=== PATIENT | male | born 1935 | race Caucasian/White ===

== ENCOUNTER 2016-11-13 08:37 | Inpatient (IN) | payer MEDICARE ==
[~2016-11-13] VITALS: Ht 170.2 cm; Wt 79.9 kg
[2016-11-13] VITALS (14 sets, daily range): BP systolic 110–141; BP diastolic 64–101; PULSE 56–74; RESP 12–20; O2SAT 95–98
[~2016-11-13 08:37] MED LIST: Heparin 25,000 Unit/500 mL 0.45% NS Premix IV ONE; Heparin 5,000 Unit/mL Inj ONE; MeTOProlol 1 mg/mL 5 mL Inj ONE; Nitroglycerin 2% 1 Gm Ointment TOPICAL ONE; Nitroglycerin 50,000 mcg/250 mL D5W Premix IV ONE; Ondansetron 2 mg/mL 2 mL Inj ONE
--- NOTE | 2016-11-13 08:38 | ED.REPORT ---
HPI-Chest Pain 40 and Over Date of Service Nov 13, 2016 ED Provider: Christopher Olivares MD The pt is an 81 y/o male presenting to the ED via EMS due to chest pain onset 0600 this morning. He also experienced a cold sweat when the CP began. The pt is not experiencing any pain currently but describes feeling uncomfortable. Per EMS, the pt took 325 MG of aspirin initially at 0600 and 50 MG of Atenolol he had from an old prescription later. EMS gave him two nitro sprays which helped decrease the pain for roughly 15 minutes. The pt also describes not taking his BP medication for the last 6 months reports having his BP taken recently at [facility] and being told it was low. Nursing Notes Stated Complaint: CHEST PAIN Chief Complaint: Chest pain Nursing Notes Reviewed: Yes Allergies: Coded Allergies: No Known Allergies (Unverified , 11/13/16) No Active Prescriptions or Reported Meds General Time Seen by MD: 08:37 Chief Complaint Chest pain Hx Obtained From: Patient, EMS Arrived By: Ambulance Sudden in Onset?: Yes Onset Occurred: 1 - 4 hours ago Symptom Duration: Since onset Recent Healthcare: No recent hospitalization, Recent doctor visit Similar Sx Previous: No Past Medical History Past Medical History None reported Past Surgical History None reported Smoking History Unknown if Ever Smoker Social History None reported Ambulatory Status Independent Review of Systems Pt denies any pain currently but reports feeling "uncomfortable"; Cardiovascular: Reports: Chest pain Skin: Reports Diaphoresis ("Cold sweat" ) Complete sys rev & neg: except as marked. Physical Exam Initial Vital Signs Vital Signs (First) Date Time Temp Pulse Resp B/P Pulse Ox O2 Delivery O2 Flow Rate FiO2 11/13/16 09:02 36.5 67 19 135/71 98 Room Air Initial VS: Reviewed Head / Eyes: Atraumatic, Normocephalic, PERRL ENT: Mucous membranes moist, Conjunctiva normal, No scleral icterus Neck: Supple, Non-tender, Full range of motion Extremities: Vascular intact, Neuro intact, No swelling, No tenderness Skin: Warm, Dry, No cyanosis Neurologic: Alert, Oriented, Nonfocal Psychiatric: Mood/affect normal, Behavior normal, Normal thought content General/Constitutional: Awake, Alert Respiratory / Chest: Atraumatic, Breath sounds NL, Breath sounds = bilat Cardiovascular: Heart rate NL, Regular rhythm, Heart sounds NL Abdomen: Atraumatic, Soft, Non-tender Interpretation & Diagnostics Lab Results Interpretation Result Diagram: 11/13/16 0845 Test 11/13/16 08:45 White Blood Count 11.7th/mm3 (3.8-10.1) Red Blood Count 4.61mil/mm3 (4.40-5.80) Hemoglobin 14.8g/dL (13.8-17.2) Hematocrit 42.8% (41.0-50.0) Mean Corpuscular Volume 92.8fL (81-100) Mean Corpuscular Hemoglobin 32.1pg (27.0-35.0) Mean Corpuscular Hemoglobin Concent 34.6% (32.0-37.0) Red Cell Distribution Width 12.7% (12.3-15.4) Platelet Count 157bil/L (150-400) Neutrophils (%) (Auto) 70.2% (40-74) Lymphocytes (%) (Auto) 20.5% (14-46) Monocytes (%) (Auto) 7.4% (4-12) Eosinophils (%) (Auto) 1.5% (0-5) Basophils (%) (Auto) 0.2% (0-3) ECG Interpretation ECG Interpretation: Rate 93 NSR Paired ventricular premature complexes Anterior infarct, acute (LAD) Lateral leads are also involved Time: 08:41 Interpreted by: ED physician X-Ray Chest Interpretation Chest Xray Interpretation: IMPRESSION: No acute cardiopulmonary disease. Dictated by: Prudencio Askew M.D. on 11/13/2016 at 9:03 Approved by: Prudencio Askew M.D. on 11/13/2016 at 9:04 View: Portable, 1 view Interpretation / Wet Read by: Interpret - Radiologist Re-Eval/Medical Decision Source of Hx: EMS Time of Eval: 09:05 Re-Evaluation/Progress Note: Dr. Valdovinos, order caller, came to the ED to see the pt. Consultation : Referral / Consult Name: Cas Valdovinos MD Consulted With: Cardiology Call Returned at: 08:30 Chipper Operator: Will see patient Counseled Regarding: Diagnosis, Lab results, Need for admission Discharge & Departure Primary Impression: STEMI (ST elevation myocardial infarction) Involved coronary artery: unspecified coronary artery Qualified Code: I21.3 - ST elevation (STEMI) myocardial infarction of unspecified site Disposition: ADMITTED TO HOSPITAL Discharge Condition All VS Reviewed: Yes Condition: Stable Referrals: Briseida King MD Crit Care Except Billable Proc Time Spent: 30-74 minutes Services Performed: Patient management by me, Time spent at bedside, Reviewing test results, Reviewing imaging, Discussing patient care, Documentation in record Scribe Attestation Portions of this note were transcribed by Herbert Main. I, Dr. Olivares personally performed the history, physical exam and medical decision-making; I reviewed and confirmed the accuracy of the information in the transcribed note. copies to: Briseida King MD, Kirk H MD Nov 13, 2016 08:38 Herbert Main Nov 13, 2016 09:05
[2016-11-13] MEDS ORDERED: MeTOProlol 1 mg/mL 5 mL Inj IVPUSH PRN (08:45)
[2016-11-13] MEDS ORDERED: Heparin 5,000 Unit/mL Inj IVPUSH ONE ×2 (08:45→12:05)
[2016-11-13] MEDS ORDERED: Nitroglycerin 2% 1 Gm Ointment TOPICAL ONE (08:45)
[2016-11-13] MEDS ORDERED: Heparin 10,000 Unit/1,000 mL NS Premix IV ONE ×2 (08:53→09:48)
[2016-11-13] MEDS ORDERED: Heparin 1,000 Units/500 mL NS Premix IV ONE (08:53)
[2016-11-13] MEDS ORDERED: Nitroglycerin 50,000 mcg/250 mL D5W Premix IV ONE (08:53)
[2016-11-13] MEDS ORDERED: Heparin 1,000 Unit/mL 10 mL Inj ONE (08:53)
--- NOTE | 2016-11-13 09:06 | DRSVH ---
PROCEDURE: X-RAY CHEST ONE VIEW, PORTABLE ([id number]) INDICATIONS: 81 year-old male with chest pain. TECHNIQUE: One view of the chest was acquired. COMPARISON: [facility], CR, XR CHEST 1V PORTABLE, 03/19/2016, 3:33 PM. FINDINGS: Surgical changes and devices: None. Lungs and pleura: No pleural effusions or pneumothorax. Lungs are clear. Mediastinum: Mediastinal contours appear normal. Heart size is normal. Bones and chest wall: No suspicious bony lesions. Overlying soft tissues appear unremarkable. IMPRESSION: No acute cardiopulmonary disease. Dictated by: Prudencio Askew M.D. on 11/13/2016 at 9:03 Approved by: Prudencio Askew M.D. on 11/13/2016 at 9:04
[2016-11-13] MEDS ORDERED: Heparin 5,000 Unit/mL Inj IVPUSH PRN (09:25)
[2016-11-13] MEDS ORDERED: Heparin 25K Unit/500mL 0.45 NS 25,000 UNIT in IV Premix 1 EACH IV SCH (09:25)
[2016-11-13 09:29] LABS: BASOPHILS % (AUTO) 0.2 % (0-3); EOSINOPHILS % (AUTO) 1.5 % (0-5); MONOCYTES % (AUTO) 7.4 % (4-12); Mean Corpuscular Hemoglobin 32.1 pg (27.0-35.0); Mean Corpuscular Volume 92.8 fL (81-100); NEUTROPHILS % (AUTO) 70.2 % (40-74); Platelet Count 157 bil/L (150-400)
[2016-11-13] MEDS ORDERED: fentaNYL-PF 50 mCg/mL 2 mL Inj ONE (09:29)
[2016-11-13 09:45] LABS: TROPONIN T 0.01 ug/L (0.0-0.011)
[2016-11-13 09:56] LABS: Magnesium 1.9 mg/dL (1.6-2.6)
[2016-11-13] MEDS ORDERED: 0.9% Sodium Chloride 250 ML IV PRN (11:52)
[2016-11-13] MEDS ORDERED: 0.9% Sodium Chloride 1,000 ML IV PRN (11:52)
[2016-11-13] MEDS ORDERED: Atropine 1 mg/10 mL (Code) Syringe IVPUSH PRN (11:55)
[2016-11-13] MEDS ORDERED: Ondansetron 2 mg/mL 2 mL Inj IVPUSH PRN (11:55)
[2016-11-13] MEDS ORDERED: Heparin 25K Unit/500mL 0.45 NS 25,000 UNIT in IV Premix 1 EACH IV ONE ×2 (12:05→12:15)
--- NOTE | 2016-11-13 13:53 | CS94 ---
[address] [address] DIAGNOSTIC CARDIAC CATHETERIZATION PATIENT: SANTOS BAUMAN : 1935 MR#: [id number] ADMIT: 11/13/2016 JOB ID: [id number] SERVICE DATE: 11/13/2016 KIER TENDER: Cas Valdovinos MD PROCEDURES: 1. Coronary angiogram, emergent. 2. Left heart catheterization (LHC), pressure measurements, and left ventriculogram (LVG). 3. Percutaneous coronary intervention (PCI) of proximal left anterior descending (LAD): Xience Alpine drug-eluting stent (MELIA) 2.75 x 23 mm. CLINICAL DETAILS: This 81-year-old man presents to the cardiac catheterization laboratory for emergent coronary angiogram and anticipated primary PCI for acute anterior STEMI. He presented to the emergency department by EMS this morning, two and a half hours after the sudden onset of his first ever episode of severe retrosternal chest discomfort with neck discomfort and diaphoresis. Initial ECG was unremarkable, then serial ECGs showed some straightening of anterior ST-segment, and on arrival in the emergency department there was overt severe anterior ST elevation with subtle confirmatory reciprocal. Inferior ST depression. He has ongoing mild to moderate chest discomfort but otherwise clinically stable. CAD risk factors include only a history of hypertension in the past, not currently active her treated. I evaluated him in the emergency department and discussed with him the recommendation to proceed emergently to coronary angiogram for definitive diagnosis and to guide treatment decisions, including medical therapy, anticipated PCI, or coronary bypass surgery if needed. We discussed the procedure including possible risks and complications. We discussed bleeding, infection, and blood clot; as well as injury to nerve, artery, vein or kidney; and also arrhythmia, drug reaction, or others. We discussed treatment as needed including surgery, pacemaker, transfusion. We discussed more serious complications that are possible including stroke, heart attack, cardiac arrest, , and emergency surgery including transfer for coronary bypass. We discussed stents, including the need for mandatory capital letters DAPT and the possible need for additional interventional procedures. After discussion and questions, he signed informed consent to proceed. He was brought to the catheterization laboratory NPO where he was prepped sterilely and draped. CORONARY ANGIOGRAM: Arterial access was obtained without difficulty in the right common femoral artery using fluoroscopic localization over the femoral head, with lidocaine local anesthesia and modified Seldinger technique, to insert a 10 cm 6-Turkish side-arm sheath. Catheters were advanced and exchanged over a long 0.035 inch J tipped guidewire. Coronary angiography was performed first, using a 6-Turkish JR-4 diagnostic catheter for the RCA. A 6-Turkish JL-4 guide catheter was used for the LCA. LHC: At the end of the procedure, a 6-Turkish pigtail catheter was introduced across the aortic valve into the left ventricle. Pressures were measured including LVED and pullback. LVG was performed in the 30 degree DEL CID projection using 36 mL of contrast injected at 12 mL/second. Primary PCI of proximal LAD: The diagnostic images were reviewed. Decision was made to proceed with emergent primary PCI of the subtotally occluded, diffusely diseased culprit proximal LAD lesion (HERMELINDA 1 flow). Prior to the procedure the patient had received ASA 324 mg chewed and Plavix 600 mg p.o. loading dose and heparin. Procedural anticoagulation was obtained with bolus IV heparin to achieve therapeutic ACT. Aliquots of NTG IC were used during the procedure. The LCA was engaged with a 6-Turkish Voda 3.5 guide catheter. Predilatation: A BMW wire, 0.014 inches x 190 cm, was advanced without difficulty across the treatment site to the apical LAD. A Trek balloon, 2.5 x 15 mm, was placed across the lesion and inflated to maximum 10 atmospheres. Flow in the artery was improved. Estimated door to balloon time was 83 minutes. Stent: Next the target lesion was treated with a Xience Alpine MELIA (drug-eluting stent) 2.75 x 23 mm deployed across the culprit lesion at 10 atmospheres. The large diagonal immediately proximal to the stent did not deteriorate. Post dilatation: The stent was post dilated with a noncompliant Trek NC balloon, 2.75 x12 mm, deployed to 16 atmospheres within the stent. Completion angiograms show an excellent angiographic result with no residual lesion, HERMELINDA-3 flow restored, and no evident angiographic complication. Note I also assessed the extensive diffuse disease in the LAD including in the ostial LAD and in the mid LAD distal to the stented segment. I elected not to pursue further treatment of the moderate to severe diffuse disease. Procedure without difficulty. Patient tolerated procedure well. No complication. A side-arm sheath angiogram shows adequate access in the RFA for a closure device. Arterial hemostasis was obtained without difficulty using a six-Turkish Angio-Seal. The patient was clinically stable, improved, and chest pain free. He was transferred from the catheterization laboratory to the CCU for ongoing care including by the primary hospitalist team. I discussed the procedure, findings, and recommendations with the patient and his , as well as with Cardiology (Dr. Norton), with the ED staff (Dr. Sultana), and with the hospitalist team (Dr. Alonzo). FINDINGS: LMCA: Intact. The left main coronary artery is a short large vessel without angiographic obstruction. LAD: LAD is the infarct related artery with a culprit proximal diffuse subtotal proximal LAD lesion (HERMELINDA 1 flow). The LAD is a moderate size transapical vessel with moderate to severe diffuse disease. There is extensive diffuse calcification noted. In addition to the diffuse proximal 99% lesion, the ostial LAD is moderately diseased (60%-70%), and there is diffuse disease in the mid LAD distal to the culprit lesion (60%-70%). There is a very large high diagonal just prior to the culprit lesion. This diagonal has diffuse disease including an eccentric 70% proximal lesion (HERMELINDA-3 flow). LCX: Note atherosclerotic plaquing with intermediate narrowing about 50% proximally. The LCX is a large codominant vessel with moderate diffuse intermediate proximal disease and a large distal . RCA: Codominant. Note 80% tubular proximal lesion. The RCA is a moderate to large size vessel with diffuse atherosclerotic plaquing and a significant tortuous proximal lesion at a fine's crook tortuosity. The distal PDA is moderate sized. LHC: LVED 35 mmHg (pre a 25 mmHg) and no systolic gradient on pullback across the aortic valve. LVG: Left ventriculogram shows normal LV size with a large anterior apical and distal region of akinesis corresponding to the wrap-around LAD. The basal segments are compensatory and vigorous. Overall ejection fraction moderately to severely decreased with estimated ejection fraction 35%-40%. No significant MR. CONCLUSIONS: 1. PCI: Xience MELIA of proximal LAD 2.75 x 23 mm. 2. ACS (acute coronary syndrome): Acute anterior myocardial infarction (STEMI) with a culprit proximal LAD subtotal lesion (HERMELINDA 1 flow). 3. Elevated LVED. 4. Coronary artery disease (CAD): Two-vessel CAD including proximal culprit subtotal LAD lesion and severe proximal RCA lesion. 5. Elevated LVED. 6. LV dysfunction: Ejection fraction 35%-40% with anteroapical wall motion defect. RECOMMENDATIONS: 1. ECASA--indefinitely. 2. Plavix: Plan one year of dual antiplatelet therapy with Plavix if well tolerated including ongoing Cardiology followup. I discussed with the patient and his the critical importance of mandatory Plavix and not to stop for any reason without immediate Cardiology consultation. 3. Echocardiogram. 4. OMT-optimal guideline directed medical therapy for underlying capital letters CAD risk factors and for his NE including ASA, Plavix, add beta-keyla in 24 hours, and high-intensity statin.
--- NOTE | 2016-11-13 13:59 | CONS ---
[address] [address] CONSULTATION REPORT PATIENT: SANTOS BAUMAN : 1935 MR#: [id number] ADMIT: 11/13/2016 JOB ID: [id number] DATE OF SERVICE: 11/13/2016 CARDIOLOGY CONSULTATION NOTE--INITIAL CRITICAL CARE EVALUATION (EMERGENCY DEPARTMENT):: DATE OF EVALUATION: Sunday, November 13, 2016. CONSULTING PHYSICIAN: Cardiology--Cas Valdovinos MD. PROBLEM: 1. Acute coronary syndrome (ACS): a. Chest pain--severe ischemic chest pain with ischemic time 2.5 hours prior to presentation. b. STEMI--acute anterior myocardial infarction; with initial ECG unremarkable; then severe anterior ST elevation developing. CAD RISK FACTORS: Lifetime nonsmoker. Hypertension--hypertension treated in the past; but not currently. No history of treated hyperlipidemia. No history of diabetes. No history of premature coronary disease in the family. CHIEF COMPLAINT:: Called for STEMI activation. HISTORY OF PRESENT ILLNESS:: PRESENTATION: I came emergently to see this 81-year-old man who presented by EMS transport to the emergency department from home. He has no prior history of heart disease. He has had no premonitory symptoms until yesterday. He is functional class I, vigorously active without effort limitation or effort-related symptoms. In fact, he hauled a cord of wood onto his porch yesterday. He walks 2 miles daily, including up hills with his without difficulty. This morning he noted the sudden and unexpected onset of severe "cold sweats," with heavy diaphoresis and also chest pressure across the upper chest which was severe. At first, he thought it might be musculoskeletal related to his work yesterday. Then, he had his call EMS. He did not have associated symptoms of dyspnea or lightheadedness or nausea. The chest discomfort did radiate to his neck. On presentation he has ongoing chest pain that is mild to moderate (about 4/10 intensity); and he is otherwise clinically stable. In the emergency department, he received ASA 324 mg chewed in addition to reporting had taken aspirin at home. He received heparin bolus and IV infusion was started. CARDIAC HISTORY:: Symptomatically he has had no prior ischemic symptoms or effort-related chest discomfort. Regarding heart failure, he reports no chronic dyspnea; or nocturnal dyspnea or edema. Regarding arrhythmia, he reports no history of arrhythmia or current symptoms of arrhythmia, including tachy palpitation, presyncope or syncope. Regarding other possible underlying vascular disease, he reports no history of CVA; and no current symptoms of TIA. No claudication. Regarding possible dual antiplatelet therapy, he reports no current bleeding symptoms; no anticipated surgery; and he indicates he is reliable to take mandatory medicines, if needed. ALLERGIES:: No known drug allergies. I elicit no history of allergy to medical contrast; or to seafood, fish, iodine or shellfish. MEDICATIONS:: He takes no medications regularly. Today, when he had chest pain, he took some aspirin; and two atenolol from when he was previously treated for hypertension. PAST MEDICAL HISTORY: He has a personal physician. He reports no other significant medical diagnoses; and he is generally healthy. REVIEW OF SYSTEMS: I questioned him in the emergent setting about a 13-point review of systems which is unremarkable, noncontributory, or negative except as noted including: No constitutional symptoms. No history of thyroid disorder. No history of lung disorder including asthma or wheezing. No history of GI disorder including indigestion, ulcer, hepatitis, or jaundice. No history of disorder or prostate symptoms. PERSONAL AND SOCIAL HISTORY: Cigarettes--lifetime nonsmoker. Alcohol--He reports no alcohol use. Family--He lives with his and has two grown children who are not local. His is later present. Work--He is long retired as an "architectural project captain/construction driller." FAMILY HISTORY: Not further contributory. PHYSICAL EXAMINATION:: VITAL SIGNS: Blood pressure 135/71, with heart rate 70, regular, in sinus rhythm on telemetry. Respiratory rate 18 and unlabored with SpO2 98% on room air. Afebrile. Weight about 80 kg. GENERAL APPEARANCE: Pleasant, well-developed, elderly man in mild distress with chest pain. NEUROLOGIC AND MENTAL STATUS: No overt focal neurologic defect noted. He is alert, oriented, appropriate and conversant. HEENT: PERRL. Conjunctivae pink. Sclerae not icteric. Mouth and mucous membranes intact. NECK: Carotid upstroke intact bilaterally without bruit. Jugular venous pressure unremarkable. No palpable thyromegaly. No palpable cervical lymphadenopathy. LUNGS: Clear to auscultation bilaterally. HEART: No chest wall tenderness. CARDIAC EXAMINATION: Notable for distant heart sounds. Regular rhythm. S4 gallop and there is no loud murmur heard. ABDOMEN: Somewhat obese; but otherwise unremarkable without tenderness, mass, hepatosplenomegaly, or bruit of abdominal aortic aneurysm. EXTREMITIES: Intact without edema; and the bilateral pedal pulses are palpable. DIAGNOSTIC STUDIES:: ELECTROCARDIOGRAM: I reviewed the three pre-hospital ECGs and the admitting ECG. Initially, the ECG is unremarkable; then a subsequent ECG shows suggestive but nondiagnostic ST straightening anteriorly; and then the admitting ECG in the ED shows overt severe anterior ST elevation of multiple millimeters with mild confirmatory reciprocal inferior ST depression. PVCs noted. Q-waves in V1 and V2 only. CHEST X-RAY: Chest x-ray film shows borderline cardiomegaly and borderline pulmonary venous hypertension without definite heart failure. LABORATORY: No laboratory available at the time of the procedure. CBC includes WBC 11,700, with hemoglobin 14.8, hematocrit 42.8, normal indices and platelet count 157,000. Chemistries include potassium 4.2, BUN 23, creatinine 0.94 with glucose 118. Magnesium 1.9 and normal LFT. Initial troponin not elevated, less than 0.010. ASSESSMENT:: I discussed the findings, impressions, and management considerations with the patient; later with his ; with the ED physician (Dr. Sultana); and with the hospitalist team (Dr. Alonzo) includin. ACS with STEMI: This is his first ever presentation of heart disease. He had the sudden onset of severe chest pain, with severe continuing chest pain consistent with ischemia. ECG was not initially abnormal; then developed overt anterior myocardial infarction. He is otherwise clinically stable on presentation. I discussed the recommendation to proceed emergently to coronary angiogram for definitive diagnosis and to guide treatment decisions, including anticipated PCI, medical therapy or even coronary bypass surgery if needed. We discussed the procedure including possible risks and complications. After discussion and questions, he signed informed consent to proceed. RECOMMENDATIONS: 1. Coronary angiogram and anticipated PCI--now; emergent. 2. Admit to CCU to hospitalist service. 3. Echocardiogram. 4. OMT--optimal guideline directed medical therapy for underlying CAD risk factors; and for anticipated CAD.
--- NOTE | 2016-11-13 14:17 | NUR ---
Admit to CCU: Patient arrived to CCU room 2009 @ 1120. A&O X3. at bedside. PIV X2 SL VSS. SpO2: mid to high 90's on RA. Tele: SB-SR 50-60. Denies. CP, SOB, discomfort. R groin site is C/D/I, soft and non-tender to touch, no bruising noted. R pedal pulse was auscultated with Doppler and marked with pen. L pedal pulse is weak to palpation. Two hours of bedrest completed. Heparin gtt was initiated at 1000u/hr per cardiac protocol as ordered. Patient status changed to PCC. Report given to Idalmis Porter RN.
--- NOTE | 2016-11-13 14:56 | PCM.HPMED ---
Subjective Date of Service Nov 13, 2016 Primary Provider: Admitting Physician: Davian Alonzo MD Primary Care Physician: Nopcp Attending Physician: Davian Alonzo MD Admit Status: From the Emergency Department, Admit to [facility] Team Chief Complaint: 81-year-old man with benign medical history presents with acute chest pain and ST elevation myocardial infarction History of Present Illness: Patient is in his usual state of health recently. On the day prior to admission he unloaded a cord of firewood on his porch without symptoms. The morning of admission approximate 6 AM he experienced cold diaphoresis. This is associated with "discomfort" in his anterior chest neck and jaw. Is unable to describe this symptom further. He felt lightheaded. He took aspirin and atenolol without relief. Headaches. Mild symptom relief with nitroglycerin during transport to the emergency room. He underwent PCI with stenting to his LAD by Dr. Valdovinos. He has been asymptomatic following this procedure. Review of systems: he has no headache, dyspnea, nausea vomiting or peripheral musculoskeletal complaints at this time. He has no prior history of angina. He took atenolol in the past for hypertension which seems to have resolved spontaneously. Is a nonsmoker. No diabetes. No family history of premature CAD. No known dyslipidemia. Review of Systems: 11 systems reviewed and findings noted above. Allergies Coded Allergies: No Known Allergies (Unverified , 11/13/16) Home Medications None PMH # Right ankle fracture # Hypertension - resolved spontaneously meds discontinued by PCP. Surgical History None Family History 2 children alive and well. No premature coronary disease or known familial lipid disorder. Social History Occupation: retired architectural manager, constructio Hx Alcohol Use: No Hx Substance Use: No Smoking Status: Unknown if Ever Smoker Living Arrangement: with Family (lives in his own home with , full ADLs) Additional Information Born in [place], [place] at age 26, lives in [facility]. Exam Vital Signs Vital Sign - Last Date Time Temp Pulse Resp B/P Pulse Ox O2 Delivery O2 Flow Rate FiO2 11/13/16 14:12 62 14 134/79 11/13/16 11:25 36.5 95 Room Air Exam General: Healthy-appearing elderly male no acute distress HEENT: sclerae anicteric, oral mucosa moist Neck: no JVD, no bruit, supple Chest: clear to auscultation Cardiac: S1S2, no murmur, no gallop Abdomen: BS normal, non-tender, no bruit no hepatosplenomegaly Extremities: No pitting edema; pulses intact in both dorsalis pedis; right femoral arterial PCI site is intact without bruising Neuro: A&O, cranial nerves symmetric, motor strength 5/5, coordination normal Lab and Diagnostics Result Diagram: 11/13/16 0845 11/13/16 0845 X-Rays, CTs and MRIs PROCEDURE: X-RAY CHEST ONE VIEW, PORTABLE ([id number]) IMPRESSION: No acute cardiopulmonary disease. Dictated by: Prudencio Askew M.D. on 11/13/2016 at 9:03 . Additional Diagnostics: DIAGNOSTIC CARDIAC CATHETERIZATION PROCEDURES: 1. Coronary angiogram, emergent. 2. Left heart catheterization (LHC), pressure measurements, and left ventriculogram (LVG). 3. Percutaneous coronary intervention (PCI) of proximal left anterior descending (LAD): Xience Alpine drug-eluting stent (MELIA) 2.75 x 23 mm. CONCLUSIONS: 1. PCI: Xience MELIA of proximal LAD 2.75 x 23 mm. 2. ACS (acute coronary syndrome): Acute anterior myocardial infarction (STEMI) with a culprit proximal LAD subtotal lesion (HERMELINDA 1 flow). 3. Elevated LVED. 4. Coronary artery disease (CAD): Two-vessel CAD including proximal culprit subtotal LAD lesion and severe proximal RCA lesion. 5. Elevated LVED. 6. LV dysfunction: Ejection fraction 35%-40% with anteroapical wall motion defect. RECOMMENDATIONS: 1. ECASA--indefinitely. 2. Plavix: Plan one year of dual antiplatelet therapy with Plavix if well tolerated including ongoing Cardiology followup. I discussed with the patient and his the critical importance of mandatory Plavix and not to stop for any reason without immediate Cardiology consultation. 3. Echocardiogram. 4. OMT-optimal guideline directed medical therapy for underlying CAD risk factors and for his ME including ASA, Plavix, add beta-keyla in 24 hours, and high-intensity statin. Cas Valdovinos MD 11/13/16 1547 . Assessment & Plan 81-year-old male with no prior coronary artery disease presents with acute anterior ST elevation myocardial infarction. # ST NIDIA, present on admission, acute. He is now status post PCI with stenting of the LAD. He has residual noncritical disease. - IV heparin - Dual antiplatelet therapy - Hyperintensity statin - Contact interventional cardiology for recurrent chest pain, Nitroglycerin as needed # Acute systolic congestive heart failure, present on admission. Erma-infarct ischemic cardiomyopathy. No symptoms at present - Initiate beta keyla after 24 hours - CHIQUITA inhibitor prior to discharge as tolerated by blood pressure # Possible dyslipidemia - Lipid panel in the a.m. . Pain Evaluation: Adequate Pain Control GI Prophylaxis: Not indicated Resuscitation Status: CPR: Attempt Resuscitation Time spent 60 minutes Davian Alonzo MD Nov 13, 2016 14:56
--- NOTE | 2016-11-13 15:39 | NUR ---
Admit to PCC Assumed pt care at approximately 1500. Right groin site: No pain on palp, no hematoma, no bleeding. Pt resting in bed HOB 30 degrees. Pt states he wants to wait to ambulate. Oriented to call light. Care continues.
--- NOTE | 2016-11-13 15:50 | DRSVH ---
[facility] [address] [place] [address] Echocardiogram Report Name: SANTOS BAUMAN Study Date: 11/13/2016 Height: 67 in Hospital Exam Location: [facility] Weight: 175 lb Gender: Other BSA: 1.9 m2 : 1935 Age: 81 yrs BP: 127/87 mmHg Reason For Study: CP, POST STEMI Ordering Physician: Performed By: Ronald Navarro Interpretation Summary 1) Normal left ventricular thickness and size with mildly reduced systolic function (EF 45-50%).2 2) There is akinesis of the mid to distal septum, apical inferior wall and the entire apex. 3) Normal right ventricular size and function. 4) There is mild to moderate mitral regurgitation. 5) No prior Echo available for comparison. Findings consistent with ischemic heart disease in the LAD territory. Procedure: A two-dimensional transthoracic echocardiogram with color flow and Doppler was performed. The study quality was technically adequate. There is no prior echocardiogram noted for this patient. The patient was in normal sinus rhythm during the exam. Left Ventricle: The left ventricle is normal in size. There is normal left ventricular wall thickness. Proximal septal thickening is noted. The ejection fraction is estimated to be 45-50%. There is akinesis of the mid to distal septum, apical inferior wall and the entire apex. Right Ventricle: The right ventricle is normal in size, thickness and function. Atria: The left atrial size is normal. Right atrium is small. The interatrial septum is intact with no evidence for an atrial septal defect. Mitral Valve: The mitral valve leaflets appear borderline thickened, but open well. The mitral valve leaflets are slightly calcified. The mitral valve chordae are thickened and/or calcified. There is mild to moderate mitral regurgitation. Aortic Valve: The aortic valve is normal in structure and function. There is no aortic valve stenosis. No aortic regurgitation is present. Tricuspid Valve: The tricuspid valve is normal. There is trace tricuspid regurgitation. Pulmonic Valve: The pulmonic valve leaflets are thin and pliable; valve motion is normal. There is mild pulmonic regurgitation. Great Vessels: The aortic root is normal size. The ascending aorta is at the upper limits of normal in size. The pulmonary artery is normal size. The inferior vena cava was not visualized. Pericardium/ Pleura There is no pericardial effusion. There is no pleural effusion. MMode/2D Measurements & Calculations LVIDd: 5.3 cm RA long axis: 4.7 cm LVOT diam: 2.3 cm LVIDs: 4.2 cm LA A2 area: 15.6 cm AoV Opening FS: 20.8 % LA A4 area: 20.6 cm RA area: 9.6 cm EPSS: 1.1 cm LA length (vol) RA vol: 16.6 ml Ao root diam IVSd: 1.0 cm RA : 8.7 ml/m2 LVPWd: 0.97 cmLA vol: 54.4 ml asc Aorta Diam LA vol index Ao Arch Diam (Prox : 28.5 ml/m2 Trans): 3.3 cm EDV(MOD-sp2) LV christina. diameter/BSA LV sys. diameter/BSA (cm/m^2): 2.8 (cm/m^2): 2.2 ESV(MOD-sp2) EF(MOD-sp2) Doppler Measurements & Calculations Ao V2 max MV E max chava MV E/A: 0.77 TR max chava : 106.6 cm/sec : 67.6 cm/sec Med Peak E' Chava : 267.5 cm/sec Ao max PG MV A max chava TR max P.6 mmHg : 4.5 mmHg : 88.0 cm/sec E/E' med: 12.1 Ao mean PG Lat Peak E' Chava LVOT Max Chava E/E' lat: 12.1 : 75.4 cm/sec E/e' average GRACE(I,D): 2.8 cm sev ratio MV dec time Ao V2 mean LV V1 max PG GRACE indexed to BSA : 0.17 sec : 75.3 cm/sec (cm^2/m^2): 1.5 Ao V2 VTI LV V1 VTI: 15.3 cm GRACE(V,D): 2.9 cm2 Reading Physician:03:49 PM
--- NOTE | 2016-11-13 16:45 | NUR ---
CKMB/Troponin Pt critical labs, CKMB: 177.6, Troponin: 13.68. Pt denies chest pain or SOB. MD notified. Care continues.
[2016-11-13 16:54] LABS: TROPONIN T 13.68 ug/L (0.0-0.011)
[2016-11-14] VITALS (9 sets, daily range): BP systolic 98–128; BP diastolic 62–75; PULSE 60–85; RESP 15–20; O2SAT 94–99
--- NOTE | 2016-11-14 03:03 | NUR ---
Activity P: Pt states, " I can't stand that bed. It's too loud. I: Pt sleeping on couch bed. E: Appears comfortable. No complaints.
[2016-11-14 03:32] LABS: Mean Corpuscular Hemoglobin 32.2 pg (27.0-35.0); Mean Corpuscular Volume 89.9 fL (81-100)
[2016-11-14 04:01] LABS: TROPONIN T 6.63 ug/L (0.0-0.011)
--- NOTE | 2016-11-14 11:19 | PCM.PNMED ---
Subjective Date of Service Nov 14, 2016 Subjective Patient 81-year-old male with a significant health history of present with anterior VT status post stenting in recovery. No significant health issues overnight. Today, patient without new complaints. Denies any shortness of breath, chest pain, palpitation, lightheadedness, dizziness, increasing leg swellings. Exam Vital Signs Vital Sign - Last Date Time Temp Pulse Resp B/P Pulse Ox O2 Delivery O2 Flow Rate FiO2 11/14/16 08:20 36.6 69 15 114/71 99 Room Air Intake and Output 11/13/16 11/13/16 11/14/16 Cumulative From/Thru 15:00 23:00 07:00 11/13/16 08:56 - 11/14/16 00:14 Intake Total 400 ml 400 ml Output Total 200 ml 200 ml 400 ml Balance 200 ml -200 ml 0 ml Intake Oral 400 ml 400 ml Output Urine Total 200 ml 200 ml 400 ml Exam General: No acute distress, appropriately interactive, patient was lying flat sleeping prior to interview HEENT: Normocephalic, atraumatic. PERRLA, EOMI, Anicteric sclerae, moist conjunctivae. Neck: No JVD, No bruits. No lymphadenopathy or thyromegaly. Cardiovascular: Regular rate and rhythm with no murmurs, rubs, or gallops appreciated Pulmonary: b/l air sound with no crackles, wheezes, or rhonchi. no use of accessory muscles. Abdomen: +Bowel sound, Soft, nontender, nondistended. Extremities: No clubbing or cyanosis, no lymphedema, no b/l lower leg edema Skin: Normal temperature, turgor, and texture; no rash. No visualized skin ulcer. Neurological: CN II-VII grossly intact, moving equally on all 4 extremities Psychiatric: Normal mood and affect. AOx3 IVs and Medications Medications Reviewed: Medications were reviewed in detail Lab and Diagnostics Result Diagram: 11/14/1691311/14/16913 X-Rays, CTs and MRIs PROCEDURE: X-RAY CHEST ONE VIEW, PORTABLE ([id number]) IMPRESSION: No acute cardiopulmonary disease. Dictated by: Prudencio Askew M.D. on 11/13/2016 at 9:03 . Cardiac Echo Impressions Reason For Study: CP, POST STEMI Interpretation Summary 1) Normal left ventricular thickness and size with mildly reduced systolic function (EF 45-50%).2 2) There is akinesis of the mid to distal septum, apical inferior wall and the entire apex. 3) Normal right ventricular size and function. 4) There is mild to moderate mitral regurgitation. 5) No prior Echo available for comparison. Findings consistent with ischemic heart disease in the LAD territory. Reading Physician:03:49 PM Additional Diagnostics DIAGNOSTIC CARDIAC CATHETERIZATION PROCEDURES: 1. Coronary angiogram, emergent. 2. Left heart catheterization (LHC), pressure measurements, and left ventriculogram (LVG). 3. Percutaneous coronary intervention (PCI) of proximal left anterior descending (LAD): Xience Alpine drug-eluting stent (MELIA) 2.75 x 23 mm. CONCLUSIONS: 1. PCI: Xience MELIA of proximal LAD 2.75 x 23 mm. 2. ACS (acute coronary syndrome): Acute anterior myocardial infarction (STEMI) with a culprit proximal LAD subtotal lesion (HERMELINDA 1 flow). 3. Elevated LVED. 4. Coronary artery disease (CAD): Two-vessel CAD including proximal culprit subtotal LAD lesion and severe proximal RCA lesion. 5. Elevated LVED. 6. LV dysfunction: Ejection fraction 35%-40% with anteroapical wall motion defect. RECOMMENDATIONS: 1. ECASA--indefinitely. 2. Plavix: Plan one year of dual antiplatelet therapy with Plavix if well tolerated including ongoing Cardiology followup. I discussed with the patient and his the critical importance of mandatory Plavix and not to stop for any reason without immediate Cardiology consultation. 3. Echocardiogram. 4. OMT-optimal guideline directed medical therapy for underlying CAD risk factors and for his VT including ASA, Plavix, add beta-keyla in 24 hours, and high-intensity statin. Cas Valdovinos MD 11/13/16 1237 . Assessment & Plan 81-year-old male with no prior coronary artery disease presents with acute anterior ST elevation myocardial infarction s/p stenting # STEMI, present on admission, acute. He is now status post PCI with stenting of the LAD. He has residual noncritical disease. - Dual antiplatelet therapy, d/c IV heparin - Hyperintensity statin, lipids wnl. # Acute systolic congestive heart failure, present on admission. Erma-infarct ischemic cardiomyopathy. No symptoms at present - added low dosed metoprolol post 24hr - schedule low dose lisinopril in the am DVT prophylaxis heparin CODE STATUS full code Disposition: Anticipate discharge tomorrow (11/15). GI Prophylaxis: Not indicated Resuscitation Status: CPR: Attempt Resuscitation Time spent 30 minutes Attending Statement I interviewed and examined the patient on rounds today. No signs of congestive heart failure. I agree with the assessment and plan as stated above. Darryn Jacques DO Nov 14, 2016 11:19 Davian Alonzo MD Nov 14, 2016 16:30
[2016-11-14] MEDS: Heparin 5,000 Unit/mL Inj SUBQ SCH (16:30)
--- NOTE | 2016-11-14 17:07 | NUR ---
Social Work Note: Initial Assessment Data& Assessment: EMR reviewed. STRAIGHTENING PRESS OPERATOR HELPER met with pt at bedside to complete initial assessment, STRAIGHTENING PRESS OPERATOR HELPER role explained and discharge planning checklist provided. Tyrell Gonzalez is a 81 year old male admitted on 11/13/2016 for chest pain. Pt has Medicare insurance coverage and goes to [facility] for primary care. Pt lives in [place] with his spouse and independent at baseline with all ADL's and no DME needs. Pt drives. Pt does not have HH hx, SNF hx, LTC insurance or VA benefits. Pt provided with DPOA/AD paperwork to review and complete. Pt to transport pt home when medically ready. Pt denies any other needs. MD denies any STRAIGHTENING PRESS OPERATOR HELPER needs and does not identify any concerns for pt capacity for self care. STRAIGHTENING PRESS OPERATOR HELPER to continue to follow if any pt needs or MD orders arise. Plan: Anticipate discharge home via POV when medically ready. STRAIGHTENING PRESS OPERATOR HELPER to continue to follow if any pt needs or MD orders arise. VANDANA Harrison Addendum: 11/14/16 at 1717 by PRUDENCIO BRENNAN Amended: Links added.
--- NOTE | 2016-11-14 18:37 | PROG NOTE ---
[address] [address] PROGRESS NOTE PATIENT: SANTOS BAUMAN : 1935 MR#: [id number] ADMIT: 11/13/2016 JOB ID: [id number] CARDIOLOGY CONSULTATION PROGRESS NOTE-FOLLOWUP INPATIENT VISIT: DATE: DATE OF EVALUATION: Monday, November 14, 2016. CONSULTING PHYSICIAN: Cardiology-Cas Valdovinos MD PROBLEMS: 1. ACS: a. STEMI--acute anterior UT. b. PCI-Xience MELIA 2.75 x 23 mm proximal LAD. See residual CAD-RCA; and intermediate disease of ostial and mid LAD. c. Ischemic cardiomyopathy-ejection fraction 40% to 50%. HOSPITAL COURSE AND INTERIM PROGRESS: Hospital day two: I saw the patient on Cardiology rounds today Monday, November 14, 2016 ( not present). In summary of his hospital course, he was admitted emergently by EMS yesterday about 2.5 hours after the onset of chest discomfort with ECG that was initially normal and then developed marked ST elevation anteriorly. He underwent emergent primary PCI of culprit subtotally occluded diffuse proximal LAD lesion (HERMELINDA I flow). He has done well in the interim without further symptoms. He was hydrated and made good urine output; and there has been no reported problem with the catheterization access site that was closed by [facility]. He remains clinically stable with vital signs intact and telemetry. He tells me he has had no shortness of breath and slept flat. EXAMINATION: Vital signs: Stable with blood pressure 111/73, heart rate 66. Review of telemetry shows no clinically significant arrhythmia and primarily sinus rhythm. Heart and lungs: Lungs are clear to auscultation bilaterally. Neck notable for no jugular venous distention. Cardiac exam notable for regular rhythm-I do not hear an S3 in the decubitus position; nor do I hear the moderate MR that is reported on echo. Extremities: The catheterization access site at [facility] is fully intact with minor ecchymosis. Nearly no tenderness; and no hematoma, pulsatile mass or bruit; and distal perfusion is intact with intact right posterior tibial pulse. LABORATORY: Intact. Note potassium 5.5, creatinine stable at 1.00. Cardiac markers show substantial moderate elevation of CK total 2872, now down-trending. Lipid profile includes cholesterol total 143, LDL calculated 80, HDL 48 and triglycerides 72. Echocardiogram: I reviewed the echo images that show normal LV size with wall motion defect consistent with his infarction of the wrap-around LAD including septum, distal anterior wall apex and distal inferior wall. Visually estimated ejection fraction calculated ejection fraction is 40% to 50%-interestingly, this is somewhat better than appeared on the LV angiogram acutely yesterday. There is moderate mitral regurgitation noted. ASSESSMENT: I discussed the findings, impressions, and management considerations with him; and with the hospitalist team (Dr. Alonzo) includin. Acute coronary syndrome with anterior STEMI with primary PCI of culprit JB subtotal proximal LAD occlusion: 2. He has done well clinically-stable without recurrent symptoms; and no evident heart failure. 3. He is making progress as expected and has been up in the room without difficulty. He feels well and ready to go home. 4. He suffered a moderate-size myocardial infarction consistent with his presentation with ischemic time two and a half hours. PLAN: I had a long discussion with him today, answered all his questions and filled him in on all my post catheterization going home recommendations includin. We discussed his medical regimen including lifetime ECASA 81 mg; and again we rediscussed the critical importance of mandatory Plavix including not to stop for any reason without immediate cardiology consultation; and also statins (to report myalgias if they occur); beta-keyla; and add CHIQUITA inhibitor later. He had questions about being on so many medicines long-term, and I let him know these are all appropriate and even critical medicines for him. He is willing without understanding. 2. We discussed followup to include to see his primary physician as early as possible within several days after discharge; and cardiology clinic in about a week. 3. We discussed the strong recommendation for cardiac rehab program. 4. We discussed activity prescription including resume activities with moderate progressive common sense symptom-limited activities. 5. We discussed his residual coronary artery disease that will need to be followed including specifically the intermediate ostial LAD lesion and the proximal RCA disease. RECOMMENDATIONS: 1. Reassess with Cardiology in a.m.; and anticipate discharge in a.m. if he is ambulating the halls well. 2. Begin metoprolol 12.5 mg short acting b.i.d. as tolerated. 3. Consider CHIQUITA inhibitor later two days after contrast. 4. Cardiology clinic followup to include reassessment of his residual CAD. 5. Referral for cardiac rehab program.
[2016-11-15 00:13] VITALS: BP 107/72; PULSE 68; RESP 16; O2SAT 94
[2016-11-15] MEDS: Heparin 5,000 Unit/mL Inj SUBQ SCH ×2 (00:31→08:52)
--- NOTE | 2016-11-15 05:01 | NUR ---
Care Note Assumed care ~1930, pt. a/o talkative and denies any discomfort or pain. Pt. resting on love seat that is extended, indicates hospital bed is "too loud". Rested for extended period, with eyes closed. Awakes easily to gentle stimuli, indicates no further needs and anticipates returning home with his . VSS. Tele: SR 60-70's.
[2016-11-15 05:14] VITALS: BP 125/75; PULSE 74; RESP 16; O2SAT 95
[2016-11-15 08:23] LABS: BASOPHILS % (AUTO) 0.2 % (0-3); EOSINOPHILS % (AUTO) 2.1 % (0-5); MONOCYTES % (AUTO) 10.8 % (4-12); Mean Corpuscular Hemoglobin 32.2 pg (27.0-35.0); Mean Corpuscular Volume 92.3 fL (81-100); NEUTROPHILS % (AUTO) 62.1 % (40-74); Platelet Count 139 bil/L (150-400)
[2016-11-15 08:43] VITALS: BP 115/77; PULSE 75; RESP 16; O2SAT 95
[2016-11-15 08:58] VITALS: PULSE 66
--- NOTE | 2016-11-15 10:23 | PCM.DIMED ---
Discharge Instructions Date of Service Nov 15, 2016 Dates of Hospitalization Nov 13, 2016 at 11:47 Discharge Diagnosis Discharge Diagnosis # STEMI, present on admission, acute. resolved # Acute systolic congestive heart failure, present on admission, resolved Medication Instructions Additional med instructions You will be going with some new medication, please take them as instructed below. Aspirin 81mg daily (over the counter) Atorvastatin 40 mg nightly Clopidogrel 75 mg daily Lisinopril 2.5 mg daily Metoprolol titrate 12.5mg twice daily Because you are taking lisinopril, you will need to have your electrolyte in one week. I have given a years prescription for your blood work. The results will be forwarded to your primary care provider to follow-up Diet Discharge Diet: Heart Healthy Activity Discharge Activity: No restrictions Call your provider Call your provider for: Shortness of breath, Bleeding, Chest pain Patient Instructions Patient Instructions You were admitted for a heart attack. We have found that you had a blockage in one of your coronary arteries A stent has been placed to ameliorate the blockage. Because of your stent, will need to be on both aspirin and clopidogrel for at least one year prevent stent from clogging. You will need to see cardiology in a few weeks. Please contact Dr. David Jason at [facility] for appointment Follow-up plan Basic Metabolic Panel in one week Follow-up with PCP in: 1 week Darryn Jacques DO Nov 15, 2016 10:22
[2016-11-15] MEDS ORDERED: ATOR40TA69 PO (10:25)
[2016-11-15] MEDS ORDERED: CLOP75TA28 PO (10:25)
[2016-11-15] MEDS ORDERED: LISI-571 PO (10:25)
[2016-11-15] MEDS ORDERED: METO25TA6 PO (10:25)
--- NOTE | 2016-11-15 11:22 | NUR ---
Social Work: Discharge/Multidisciplinary Rounds D: Pt discussed in multidisciplinary rounds; the patient is medically stable for discharge home today. Providers identify no needs or concerns about pt's capacity for self-care. CORRAL BOSS met with the patient at bedside to confirm discharge plan and re-assess for unmet needs. Pt lives in [place] with his . Pt has been ambulating I and has no concerns about his discharge. Pt states his will transport him home. EMR reviewed; no sw needs identified. A: Pt who is I at baseline and continues to be I with ambulation and ADLs. P: Pt to discharge home with his to [place] with no sw needs. VANDANA Melara
[2016-11-15 12:28] VITALS: BP 128/84; PULSE 68; RESP 20; O2SAT 96
--- NOTE | 2016-11-15 14:13 | NUR ---
Discharge 0930 - Discussed his care with Dr. Alonzo, Dr. Jacques, and the rest of the multidisciplinary care team during morning rounds. Notified the team that he had some missed beats on his telemetry last night. No new orders 1405 - He discharged at this time. Before discharge his two IV's and telemetry were discontinued intact. Discussed and gave him his discharge paperwork (4 prescriptions, instructions, cardiac stent info, groin closer device info, and care notes). His was present in the room at this time. Answered their questions. They thanked staff for his care. Took all his belongings. He was walked out to the exit of the hospital by this nurse.
--- NOTE | 2016-11-15 15:52 | PCM.DC.MED ---
Discharge Summary Date of Service Nov 15, 2016 Dates of Hospitalization Date of Hospital Admission Nov 13, 2016 at 11:47 Date of Discharge: Nov 15, 2016 Providers: Admitting Physician: Davian Alonzo MD Primary Care Physician: Nopcp Attending Physician: Davian Alonzo MD Diagnosis at Time of Discharge Diagnosis at Time of Discharge # STEMI, present on admission, acute. resolved # Acute systolic congestive heart failure, present on admission, resolved Procedures XRay, CTs & MRIs PROCEDURE: X-RAY CHEST ONE VIEW, PORTABLE ([id number]) IMPRESSION: No acute cardiopulmonary disease. Dictated by: Prudencio Askew M.D. on 11/13/2016 at 9:03 . Cardiac Echo Impression Reason For Study: CP, POST STEMI Interpretation Summary 1) Normal left ventricular thickness and size with mildly reduced systolic function (EF 45-50%).2 2) There is akinesis of the mid to distal septum, apical inferior wall and the entire apex. 3) Normal right ventricular size and function. 4) There is mild to moderate mitral regurgitation. 5) No prior Echo available for comparison. Findings consistent with ischemic heart disease in the LAD territory. Reading Physician:03:49 PM Other Diagnostics DIAGNOSTIC CARDIAC CATHETERIZATION PROCEDURES: 1. Coronary angiogram, emergent. 2. Left heart catheterization (LHC), pressure measurements, and left ventriculogram (LVG). 3. Percutaneous coronary intervention (PCI) of proximal left anterior descending (LAD): Xience Alpine drug-eluting stent (MELIA) 2.75 x 23 mm. CONCLUSIONS: 1. PCI: Xience MELIA of proximal LAD 2.75 x 23 mm. 2. ACS (acute coronary syndrome): Acute anterior myocardial infarction (STEMI) with a culprit proximal LAD subtotal lesion (HERMELINDA 1 flow). 3. Elevated LVED. 4. Coronary artery disease (CAD): Two-vessel CAD including proximal culprit subtotal LAD lesion and severe proximal RCA lesion. 5. Elevated LVED. 6. LV dysfunction: Ejection fraction 35%-40% with anteroapical wall motion defect. RECOMMENDATIONS: 1. ECASA--indefinitely. 2. Plavix: Plan one year of dual antiplatelet therapy with Plavix if well tolerated including ongoing Cardiology followup. I discussed with the patient and his the critical importance of mandatory Plavix and not to stop for any reason without immediate Cardiology consultation. 3. Echocardiogram. 4. OMT-optimal guideline directed medical therapy for underlying CAD risk factors and for his LA including ASA, Plavix, add beta-keyla in 24 hours, and high-intensity statin. Cas Valdovinos MD 11/13/16 1237 . Brief History Patient is in his usual state of health recently. On the day prior to admission he unloaded a cord of firewood on his porch without symptoms. The morning of admission approximate 6 AM he experienced cold diaphoresis. This is associated with "discomfort" in his anterior chest neck and jaw. Is unable to describe this symptom further. He felt lightheaded. He took aspirin and atenolol without relief. Headaches. Mild symptom relief with nitroglycerin during transport to the emergency room. He underwent PCI with stenting to his LAD by Dr. Valdovinos. He has been asymptomatic following this procedure. Review of systems: he has no headache, dyspnea, nausea vomiting or peripheral musculoskeletal complaints at this time. He has no prior history of angina. He took atenolol in the past for hypertension which seems to have resolved spontaneously. Is a nonsmoker. No diabetes. No family history of premature CAD. No known dyslipidemia. Hospital Course Patient is 81-year-old male with no prior coronary artery disease presents with acute anterior ST elevation myocardial infarction s/p stenting # STEMI, present on admission, acute. He is now status post PCI with stenting of the LAD. He has residual noncritical disease. - Dual antiplatelet therapy, d/c IV heparin - Discharge home with: -Atorvastatin 40mg daily -Plavix 75mg daily -Aspirin 81mg daily # Acute systolic congestive heart failure, present on admission. Erma-infarct ischemic cardiomyopathy. No symptoms at present - EF 45-50% with akinesis of the mid to distal septum, apical inferior wall, and apex - metoprolol 12.5mg bid - lisinopril 2.5mg daily - BMP in 1wk -Appt to see Cardiology Dr. David Jason in 1-2wks Exam Vital Signs (Last) Date Time Temp Pulse Resp B/P Pulse Ox O2 Delivery O2 Flow Rate FiO2 11/15/16 12:28 36.5 68 20 128/84 96 Room Air Test 11/13/16 08:45 11/13/16 11:30 11/14/16 03:24 11/15/16 07:40 Total Bilirubin 0.7mg/dL (0.0-1.2) Aspartate Amino Transf (AST/SGOT) 22U/L (0-50) Alanine Aminotransferase (ALT/SGPT) 17U/L (0-44) Alkaline Phosphatase 60U/L (25-160) Total Protein 6.7g/dL (6.4-8.4) Albumin 3.6g/dL (3.4-5.0) Hold Mccarty Top Tube Received (Received) Hold Urine Received (Received) Activated Partial Thromboplast Time 71.1sec (22.8-33.0) Total Creatine Kinase 1142U/L (21-232) Creatine Kinase MB 55.0ng/mL (0.0-10.4) Creatine Kinase MB % 4.9% (0.0-5.0) Troponin T 6.63ug/L (0.0-0.011) Triglycerides Level 72mg/dL (0-149) Cholesterol Level 143mg/dL (100-199) LDL Cholesterol, Calculated 80.600mg/dL (0-99) VLDL Cholesterol 14.400mg/dL HDL Cholesterol 48mg/dL (>39) Cholesterol/HDL Ratio 2.98 (0.0-4.4) White Blood Count 9.4th/mm3 (3.8-10.1) Red Blood Count 4.56mil/mm3 (4.40-5.80) Hemoglobin 14.7g/dL (13.8-17.2) Hematocrit 42.1% (41.0-50.0) Mean Corpuscular Volume 92.3fL (81-100) Mean Corpuscular Hemoglobin 32.2pg (27.0-35.0) Mean Corpuscular Hemoglobin Concent 34.9% (32.0-37.0) Red Cell Distribution Width 12.8% (12.3-15.4) Platelet Count 139bil/L (150-400) Neutrophils (%) (Auto) 62.1% (40-74) Lymphocytes (%) (Auto) 24.4% (14-46) Monocytes (%) (Auto) 10.8% (4-12) Eosinophils (%) (Auto) 2.1% (0-5) Basophils (%) (Auto) 0.2% (0-3) Magnesium Level 2.0mg/dL (1.6-2.6) Test 11/15/16 08:30 Sodium Level 140mEq/L (134-144) Potassium Level 4.7mEq/L (3.5-5.2) Chloride Level 103mEq/L (97-108) Carbon Dioxide Level 23mmol/L (18-29) Blood Urea Nitrogen 23mg/dL (8-27) Creatinine 1.21mg/dL (0.76-1.27) Estimat Glomerular Filtration Rate 61mL/min (>59) Glucose Level 95mg/dL (60-99) Calcium Level 8.9mg/dL (8.5-10.1) Discharge Medications Discharge Medications Atorvastatin Calcium (Atorvastatin Calcium) 40 Mg Tablet 40 MG PO HS Prescribed by: RODNEY ZAMARRIPA DO Clopidogrel (Clopidogrel) 75 Mg Tablet 75 MG PO DAILY Prescribed by: RODNEY ZAMARRIPA DO Lisinopril (Lisinopril) 5 Mg Tablet 2.5 MG PO DAILY Prescribed by: RODNEY ZAMARRIPA DO Metoprolol Tartrate (Metoprolol Tartrate) 25 Mg Tablet 12.5 MG PO BID Prescribed by: RODNEY ZAMARRIPA DO Additional med instructions You will be going with some new medication, please take them as instructed below. Aspirin 81mg daily (over the counter) Atorvastatin 40 mg nightly Clopidogrel 75 mg daily Lisinopril 2.5 mg daily Metoprolol titrate 12.5mg twice daily Because you are taking lisinopril, you will need to have your electrolyte in one week. I have given a years prescription for your blood work. The results will be forwarded to your primary care provider to follow-up Followup Plan Follow-up plan Basic Metabolic Panel in one week Discharge Diet: Heart Healthy Discharge Activity: No restrictions Patient Instructions You were admitted for a heart attack. We have found that you had a blockage in one of your coronary arteries A stent has been placed to ameliorate the blockage. Because of your stent, will need to be on both aspirin and clopidogrel for at least one year prevent stent from clogging. You will need to see cardiology in a few weeks. Please contact Dr. David Jason at [facility] for appointment Follow-up with PCP in: 1 week Time spent 35 minutes, including review of data with tanning consultant copies to: Cas Valdovinos MD; David Jason MD,Rodney H Nov 15, 2016 15:52 Davian Alonzo MD Nov 16, 2016 07:12
--- NOTE | 2016-11-19 12:03 | NUR ---
Post-discharge call from patient Outpatient CR received call from Pt; reports having some fatigue and vague chest discomfort while attempting to engage in physical activity at home. Symptoms resolve very quickly with rest, but he is concerned because it is very mild activity. Staff encouraged him to contact his health informatics advisor (phone number provided to patient for reference), and to call [phone] if these symptoms increase in frequency or do not resolve with rest. Pt agrees. CR staff will send brief note to cardiology.
== END 2016-11-15 14:03 | disposition home or self-care (01) | DRG 246 ==
LOC: SED 08:37 → CCU 11:47 → PCC 13:42
PROVIDERS: ADMIT Internal Medicine; ATTEND Internal Medicine
PROC: 027034Z Dilation of Coronary Artery, One Artery with Drug-eluting Intraluminal Device, Percutaneous Approach (ICD-10-PCS; principal; 2016-11-13)
PROC: 4A023N7 Measurement of Cardiac Sampling and Pressure, Left Heart, Percutaneous Approach (ICD-10-PCS; 2016-11-13)
PROC: B2111ZZ Fluoroscopy of Multiple Coronary Arteries using Low Osmolar Contrast (ICD-10-PCS; 2016-11-13)
DX: I21.09 ST elevation (STEMI) myocardial infarction involving other coronary artery of anterior wall (principal); I50.21 Acute systolic (congestive) heart failure; I25.5 Ischemic cardiomyopathy